=== PATIENT | male | born 1945 | race Caucasian/White ===

== ENCOUNTER → 2019-07-13 10:49 | Outpatient (BNVA) | payer MEDICARE, SELFPAY | PROVIDERS: PCP Family Medicine; Visit Provider Specialist | DX: R25.1 Tremor, unspecified (principal); R26.81 Unsteadiness on feet; G90.3 Multi-system degeneration of the autonomic nervous system | CPT/HCPCS: 99205 ==

== ENCOUNTER 2019-07-26 09:12 | Outpatient (CLI) | payer MEDICARE, SELFPAY ==
--- NOTE | 2019-07-26 11:01 | MR_ITS ---
WS: [id number] MRI BRAIN WITHOUT CONTRAST HISTORY: new onset of migraine COMPARISON: None available. TECHNIQUE: Diffusion imaging, multiplanar T1, T2 and FLAIR imaging obtained. No evidence for acute infarct or hemorrhage. Dickinson-white matter differentiation is normal. Mild chroni c microvascular ischemic disease in the subcortical and periventricular white matter. No remote or acute infarcts are volume loss. Ventricles and extra-axial spaces are normal. No inferior displacement of cerebellar tonsils. The sella turcica and pituitary gland are unremarkabl e. Posterior fossa is also unremarkable. Dural venous sinuses and burns paiute of Schwarz demonstrate no abnormality on this unenhanced studies. Paranasal sinuses: Mild mucoperiosteal thickening. No air-fluid levels. Mastoid air cells: Normal. Calvarium and scalp: Intact. MR/MR head wo con* [id number] IMPRESSION: 1. No acute infarct. 2. Mild chronic microvascular small vessel disease.
== END 2019-07-26 09:13 | disposition home or self-care (01) ==
LOC: RADSHAW 09:14
PROVIDERS: PCP Family Medicine; Visit Provider Specialist
DX: I99.8 Other disorder of circulatory system (principal); R25.1 Tremor, unspecified; G43.909 Migraine, unspecified, not intractable, without status migrainosus; R41.89 Other symptoms and signs involving cognitive functions and awareness; I95.1 Orthostatic hypotension
CPT/HCPCS: 70551; 96116; 99214